=== PATIENT | male | born 1965 | race Caucasian/White ===

== ENCOUNTER 2021-09-13 08:28 | Day surgery (SDC) | payer OTHER ==
[~2021-09-13] VITALS: Ht 177.8 cm; Wt 104.0 kg
[~2021-09-13 08:28] MED LIST: ESCI10 PO; LAMO25 PO; PRAV20 PO; PRAVASTATIN SOD40 MG PO; ROSU10TA PO; TRAZ50 PO
== END 2021-09-13 11:15 | disposition home or self-care (01) ==
LOC: ORSCSDS 08:28
PROVIDERS: Internal Medicine Gastroenterology
PROC: 0D757ZZ Dilation of Esophagus, Via Natural or Artificial Opening (ICD-10-PCS; principal; 2021-09-13 09:45)
PROC: 0DJD8ZZ Inspection of Lower Intestinal Tract, Via Natural or Artificial Opening Endoscopic (ICD-10-PCS; principal; 2021-09-13 09:45)
PROC: 0DB68ZX Excision of Stomach, Via Natural or Artificial Opening Endoscopic, Diagnostic (ICD-10-PCS; principal; 2021-09-13 09:45)
PROC: 0DB58ZX Excision of Esophagus, Via Natural or Artificial Opening Endoscopic, Diagnostic (ICD-10-PCS; principal; 2021-09-13 09:45)
DX: R13.10 Dysphagia, unspecified (principal); K29.70 Gastritis, unspecified, without bleeding; K29.80 Duodenitis without bleeding; K22.2 Esophageal obstruction; Z12.11 Encounter for screening for malignant neoplasm of colon; Z86.010 Personal history of colon polyps; K57.30 Diverticulosis of large intestine without perforation or abscess without bleeding; Z87.891 Personal history of nicotine dependence; F41.9 Anxiety disorder, unspecified; F31.81 Bipolar II disorder; F32.9 Major depressive disorder, single episode, unspecified; E78.5 Hyperlipidemia, unspecified; Z79.899 Other long term (current) drug therapy
CPT/HCPCS: 88305; 88313; 88342; J2704; J7120

== ENCOUNTER 2024-08-06 11:07 | Inpatient (IN) | payer BC ==
[~2024-08-06] VITALS: Ht 175.3 cm; Wt 102.2 kg
[~2024-08-06 11:07] MED LIST changes: -ERTAPENEM1 G6 IV; -ROSUVASTATIN CA10 MG PO; -TAMSULOSIN HCL0.4 M1 PO
[2024-08-06] MEDS ORDERED: Ketorolac Tromethamine 15mg Vial IV ONE (11:40)
[2024-08-06 12:29] LABS: BASOPHILS ABSOLUTE AUTO 0.04 K/mm3 (0.00-0.23); BASOPHILS PERCENT AUTO 0 % (0-2); EOSINOPHILS PERCENT AUTO 0 % (0-6); Hematocrit 44.1 % (37.0-53.0); Hemoglobin 14.9 g/dL (13.5-17.5); IMMATURE GRAN ABSOLUTE AUTO 0.26 K/mm3 (0.00-0.10); IMMATURE GRAN PERCENT AUTO 1 % (0-1); LYMPHOCYTES ABSOLUTE AUTO 0.71 K/mm3 (0.84-5.20); LYMPHOCYTES PERCENT AUTO 4 % (21-46); MONOCYTES ABSOLUTE AUTO 0.43 K/mm3 (0.16-1.47); MONOCYTES PERCENT AUTO 2 % (4-13); Mean Corpuscular HGB 28.7 pg (26.0-34.0); Mean Corpuscular HGB Conc 33.8 g/dL (31.5-36.5); Mean Corpuscular Volume 85 fL (80-100); Mean Platelet Volume 9.9 fL (9.1-12.4); NEUTROPHILS ABSOLUTE AUTO 16.95 K/mm3 (1.96-9.15); NEUTROPHILS PERCENT AUTO 92 % (41-73); Platelet Count 224 K/mm3 (150-400); RDW Coefficient Variation 13.6 % (11.7-14.2); RDW Standard Deviation 42.3 fL (35.1-46.3); Red Blood Cell Count 5.19 M/mm3 (4.30-5.90); White Blood Cell Count 18.39 K/mm3 (4.00-11.30)
[2024-08-06 12:33] LABS: Source, Urine Clean Catch
[2024-08-06 12:37] LABS: Appearance, Urine Cloudy (Clear); Bilirubin, Urine Neg (Neg); Blood, Urine 5+ (Neg); Color, Urine Yellow (P-Yellow); Glucose Qualitative, Urine Neg (Neg); Ketones, Urine 1+ (Neg); Leukocyte Esterase, Urine 3+ (Neg); Nitrite, Urine Neg (Neg); Protein, Urine 2+ (Neg); Urobilinogen, Urine NORM (Normal)
[2024-08-06 13:16] LABS: Albumin, Blood 3.7 g/dL (3.4-5.0); Albumin/Globulin Ratio 0.9 (0.8-1.8); Bilirubin, Total 1.8 mg/dL (0.1-1.0); Creatinine, Blood 1.14 mg/dL (0.60-1.20); Globulin, Blood 3.9 g/dL (2.2-4.0); Magnesium, Blood 2.1 mg/dL (1.6-2.4); Potassium, Blood 3.5 mmol/L (3.5-5.5); Total Protein, Blood 7.6 g/dL (6.4-8.2)
[2024-08-06 13:20] LABS: Bacteria Few /hpf; Squamous Epithelial Cells Few /hpf (Few); White Blood Cells, Urine 25-50 /hpf (0-5)
[2024-08-06] MEDS ORDERED: CefTRIAXone Sodium 1,000 MG in NS 100 ML IV ONE (13:35)
[2024-08-06] MEDS ORDERED: ROSUVASTATIN CA10 MG PO ×2 (13:43)
[2024-08-06] MEDS ORDERED: ESCI10 PO ×2 (13:43)
[2024-08-06] MEDS ORDERED: TAMSULOSIN HCL0.4 M1 PO ×2 (13:43)
[2024-08-06] MEDS ORDERED: NS 1,000 ML IV SCH (13:50)
[2024-08-06] MEDS ORDERED: Acetaminophen 500 MG Tab PO ONE (15:05)
[2024-08-06] MEDS ORDERED: Ondansetron HCl 2 MG / ML 2ML Vial IV ONE (15:35)
[2024-08-06] MEDS ORDERED: Lactated Ringer's 1,000 ML IV ONE (16:00)
[2024-08-06] MEDS ORDERED: Acetaminophen 325 MG TABLET PO PRN (16:15)
[2024-08-06] MEDS ORDERED: FLU VACC TS2024-25(6MOS UP)/PF 45 MCG/0.5 ML SYRINGE IM SCH (16:20)
[2024-08-06] MEDS ORDERED: Albuterol HFA200 ACT/6.7 GM INH INH PRN (16:20)
[2024-08-06] MEDS ORDERED: Tamsulosin HCl 0.4 MG Cap PO SCH (17:00)
[2024-08-06] MEDS ORDERED: Lactated Ringer's 1,000 ML IV SCH (17:00)
[2024-08-06 19:31] VITALS: BP 108/76
[2024-08-06] MEDS ORDERED: TraZODone HCl 50 MG Tab PO SCH (21:00)
[2024-08-06] MEDS ORDERED: LamoTRIgine 25 MG Tab PO SCH (21:00)
[2024-08-06] MEDS ORDERED: Lactobacil 2-S.Thermo-Bifido 1 1 Cap PO SCH (21:00)
[2024-08-07 02:38] VITALS: BP 121/75
--- NOTE | 2024-08-07 03:49 | NUR ---
NOC SUMMARY- PT ARRIVED TO ROOM IN NO DISTRESS. PT IS AMBULATORY AND STEADY ON HIS FEET. PT IS VOIDING FREQUENTLY. PT REPORTS CONTINUED BURNING SENSATION. PT HAS BEEN EATING AND DRINKING WELL. PT HAS NO COMPLAINTS. PT RESTING QUIETLY AND TURNS SELF. CALL LIGHT IN REACH.
[2024-08-07] MEDS ORDERED: Omeprazole 20 MG CapCR PO SCH (06:00)
[2024-08-07 06:20] LABS: Albumin, Blood 2.6 g/dL (3.4-5.0); Albumin/Globulin Ratio 0.8 (0.8-1.8); Bilirubin, Direct 0.4 mg/dL (0.0-0.3); Bilirubin, Total 1.1 mg/dL (0.1-1.0); Calcium, Blood 8.3 mg/dL (8.5-10.1); Globulin, Blood 3.1 g/dL (2.2-4.0); Potassium, Blood 4.5 mmol/L (3.5-5.5); Total Protein, Blood 5.7 g/dL (6.4-8.2)
[2024-08-07 06:27] LABS: BASOPHILS ABSOLUTE AUTO 0.05 K/mm3 (0.00-0.23); BASOPHILS PERCENT AUTO 0 % (0-2); EOSINOPHILS ABSOLUTE AUTO 0.03 K/mm3 (0.00-0.68); EOSINOPHILS PERCENT AUTO 0 % (0-6); Hemoglobin 12.9 g/dL (13.5-17.5); IMMATURE GRAN ABSOLUTE AUTO 0.21 K/mm3 (0.00-0.10); IMMATURE GRAN PERCENT AUTO 1 % (0-1); LYMPHOCYTES ABSOLUTE AUTO 0.69 K/mm3 (0.84-5.20); LYMPHOCYTES PERCENT AUTO 4 % (21-46); MONOCYTES ABSOLUTE AUTO 0.91 K/mm3 (0.16-1.47); MONOCYTES PERCENT AUTO 5 % (4-13); Mean Corpuscular HGB 28.7 pg (26.0-34.0); Mean Corpuscular HGB Conc 33.9 g/dL (31.5-36.5); Mean Corpuscular Volume 85 fL (80-100); NEUTROPHILS ABSOLUTE AUTO 15.27 K/mm3 (1.96-9.15); NEUTROPHILS PERCENT AUTO 89 % (41-73); RDW Coefficient Variation 13.7 % (11.7-14.2); RDW Standard Deviation 42.6 fL (35.1-46.3); Red Blood Cell Count 4.49 M/mm3 (4.30-5.90); White Blood Cell Count 17.16 K/mm3 (4.00-11.30)
[2024-08-07 07:35] VITALS: BP 119/78
[2024-08-07] MEDS ORDERED: Ondansetron HCl 2 MG / ML 2ML Vial IV PRN (08:40)
[2024-08-07] MEDS ORDERED: NS 1,000 ML IV SCH (08:50)
[2024-08-07] MEDS ORDERED: CefTRIAXone Sodium 2,000 MG in NS 100 ML IV SCH (09:00)
[2024-08-07] MEDS ORDERED: Enoxaparin 40 MG/0.4 ML SYR SC SCH (09:00)
[2024-08-07] MEDS ORDERED: Atorvastatin 10 MG Tab PO SCH (09:00)
[2024-08-07] MEDS ORDERED: Citalopram Hydrobromide 20 MG Tab PO SCH (09:00)
[2024-08-07] MEDS ORDERED: CefTRIAXone Sodium 1,000 MG in NS 100 ML IV SCH (12:00)
--- NOTE | 2024-08-07 14:36 | NUR ---
SHIFT SUMMARY PATIENT IND IN ROOM. USING URINAL TO MONITOR OUTPUT. ROCEPHIN DOSAGE INCREASED TO 2G. LR INFUSION CHANGED TO NS @125. ENCOURAGING ORAL INTAKE WELL. PT COMPLAINT OF NAUSEA THIS AM, DR. COKER ORDERED ZOFRAN IV PRN, BUT PT DENIED NEED WHEN OFFERED TO HIM. PATIENT GOT UP TO SHOWER TODAY. NEW IV PLACED LEFT FOREARM. PRN TYLENOL GIVEN X2 FOR LOW GRADE TEMP AND MILD PAIN.
[2024-08-07 15:04] VITALS: BP 121/73
[2024-08-07] MEDS ORDERED: Banana Flakes/Tos 1 EA Powder Pack PO STA (16:12)
[2024-08-07 18:24] VITALS: BP 139/86
[2024-08-07] MEDS ORDERED: Ketorolac Tromethamine 15mg Vial IV ONE (18:30)
[2024-08-07 19:44] VITALS: BP 122/78
--- NOTE | 2024-08-07 20:15 | NUR ---
PATIENT REPORTS PAIN THAT IS A 9-10/10 THAT RADIATES FROM HIS GROIN TO HIS MID ABDOMIN TO HIS HIS BACK-PATIENT HAS TYLENOL FOR PAIN-PATIENT REPORTS NO RELIEF OF PAIN FROM TYLENOL.
[2024-08-07] MEDS ORDERED: OxyCODONE 5 mg/Acetamin 325 mg TABLET PO PRN (20:30)
[2024-08-07] MEDS ORDERED: Docusate Sodium 100 MG Cap PO SCH (21:00)
[2024-08-08 04:43] VITALS: BP 136/82
[2024-08-08 06:12] LABS: Hematocrit 36.6 % (37.0-53.0); Hemoglobin 12.3 g/dL (13.5-17.5); Mean Corpuscular HGB 28.6 pg (26.0-34.0); Mean Corpuscular HGB Conc 33.6 g/dL (31.5-36.5); Mean Corpuscular Volume 85 fL (80-100); Mean Platelet Volume 10.3 fL (9.1-12.4); Platelet Count 161 K/mm3 (150-400); RDW Coefficient Variation 13.8 % (11.7-14.2); RDW Standard Deviation 42.7 fL (35.1-46.3); White Blood Cell Count 11.19 K/mm3 (4.00-11.30)
[2024-08-08 06:34] LABS: Bun/Creatinine Ratio 13.4 (12.0-20.0); Calcium, Blood 8.2 mg/dL (8.5-10.1); Creatinine, Blood 0.9 mg/dL (0.60-1.20); Potassium, Blood 3.6 mmol/L (3.5-5.5)
--- NOTE | 2024-08-08 06:38 | NUR ---
SHIFT SUMMARY. PATIENT IS A&OX4. PATIENTS AFEBRILE THIS SHIFT. PATIENT REPORTS PAIN THAT RADIATES FROM GROIN TO MID ABDOMIN TO BACK. HOSPITALIST SHEA ORDERED FOR PERCOCET-SEE ORDERS. PATIENT INDEPENDENT IN ROOM. PATIENT CALLS APPROPRIATELY AND IS ABLE TO MAKE HIS NEEDS KNOWN. BED IS LOCKED IN THE LOWEST POSITION WITH CALL LIGHT IN REACH. CARE IS ONGOING.
[2024-08-08 07:42] VITALS: BP 149/87
[2024-08-08] MEDS ORDERED: Meropenem 1,000 MG in NS 100 ML IV SCH (08:26)
[2024-08-08] MEDS ORDERED: Thiamine HCl 100 MG Tab PO SCH (09:00)
[2024-08-08] MEDS ORDERED: Multivitamins 1 Tab PO SCH (09:00)
--- NOTE | 2024-08-08 09:00 | NUR ---
pt laying in bed, spouce at bedside, a/ox4, pleasant and coopertive with care, follows commands well, reports a lot of pain in lower abd, lungs are clear t/o, no cough noted or reported, on r/a, hrr, no edema noted, ppp+2, cap refill <3 sec, vs stable, afebrile, piv to lfa and rac, sites are clear and patent, btx4, abd flat soft nontender, voids without diff, skin c/w/d, maew, kirill, call light in reach.
[2024-08-08 16:04] VITALS: BP 123/77
--- NOTE | 2024-08-08 18:00 | NUR ---
pt moaning with pain, medicated him with roxinol, he is some calmer, he states he needs to have a bm, and his bladder feels full, called Dr. Shook reported lactic acid increased to 4.8, no new orders, did a bladder scan showed 800, but could be acites, DrJennifer ok to straight cath, if large amount out will leave roche. spoke with pallative care nurse to make sure they are aware of pt. call light in reach.
--- NOTE | 2024-08-08 18:03 | NUR ---
pt resting in bed watching tv with spouce, states he's feeling better and appetite is coming back, she brought him a pizza, doing ok at this time, call light in reach.
[2024-08-08 19:13] VITALS: BP 148/91
[2024-08-08] MEDS ORDERED: NS 250 ML IV PRN (23:00)
[2024-08-09 03:47] VITALS: BP 158/92
--- NOTE | 2024-08-09 05:31 | NUR ---
SHIFT SUMMARY NOC PT A/O X 4. PLEASANT AND COOPERATIVE WITH CARE. VSS. NO ACUTE CHANGES TO REPORT. PT RECEIVING IV ABX FOR UTI. PT WILL NEED POWERGLIDE OR PICC PLACED IS RN AND CAN ADMINISTER IV ABX AT HOME. PT AWAITING REFERRAL FOR HOME HEALTH TO DISCHARGE HOME SAFELY. PT FLANK PAIN BEING MANAGED PER EMAR. PT CURRENTLY RESTING WITH BED IN LOWEST POSITION, AND CALL LIGHT WITHIN REACH.
[2024-08-09 07:09] VITALS: BP 138/94
[2024-08-09 15:40] VITALS: BP 151/93
[2024-08-09 19:14] VITALS: BP 124/76
--- NOTE | 2024-08-09 19:30 | NUR ---
SHIFT SUMMARY MR YANG HAS BEEN AMBULATORY, STEADY GAIT, TOOK A SHOWER TODAY. AT BEDSIDE, SHE IS AN RN AND THEY VERBALISED UNDERSTANDING OF PLAN OF CARE. HE HAS AN APPOINTMENT SET UP FOR OUT PT ABX THERAPY MONDAY AND MONDAY AT 1:30PM WITH A PLAN FOR LINE PLACEMENT ON MONDAY. PAIN CONTROLED WITH PERCOCET, STILL C/O DYSURIA AND FLANK PAIN, PAIN LESS INTENSE THAN PREVIOUSLY. BED LOW, CALL LIGHT IN REACH.
[2024-08-09] MEDS ORDERED: Morphine Sulfate 4 MG/1 ML Injection IV PRN (22:45)
--- NOTE | 2024-08-10 03:19 | NUR ---
SHIFT SUMMARY PT AOX4, COOPERATIVE, ABLE TO MAKE NEEDS KNOWN. TOLERATING MEDS APPROPRIATELY, SAMANTHA BENSON CONTACTED PROVIDER ON NEW PAIN MED ORDER SINCE PREVIOUS WAS NOT EFFECTIVE ACCORDING TO PT. MORPHINE WAS EFFECTIVE. PT HAS HAD NO COMPLAINTS DURING SHIFT, TOLERATING MEDS WELL. BED IN LOWEST POSITION, CALL LIGHT WITIN REACH.
[2024-08-10 05:33] VITALS: BP 150/79
[2024-08-10 07:03] VITALS: BP 150/91
[2024-08-10] MEDS ORDERED: VISBIOME 112.51 EACH PO (13:21)
[2024-08-10] MEDS ORDERED: ERTAPENEM1 G6 IV ×2 (13:23)
--- NOTE | 2024-08-10 16:12 | NUR ---
DISCHARGE NOTE PT DISCHARGED TO HOME, PICKED UP BY HIS . IV REMOVED, POWERGLIDE IN PLACE FOR OUTPATIENT INFUSIONS THROUGH THE [facility]. NO ACUTE CHANGES PRIOR TO DC. PT RECEIVED TWO IV MEREM BEFORE DC. DISCHARGE EDUCATION AND INFORMATION PROVIDED, REVIEWED WITH THE PT.
== END 2024-08-10 16:30 | disposition home or self-care (01) | DRG 872 ==
LOC: ER 11:07 → MEDS 16:12 → ERHOLD 16:12 → MEDS 19:28 → ENPENDDIS 08-10 11:42 → MEDS 08-10 16:30
PROVIDERS: Internal Medicine; Physician Assistant; ADMIT Family Medicine
DX: A41.51 Sepsis due to Escherichia coli [E. coli] (principal); N12 Tubulo-interstitial nephritis, not specified as acute or chronic; E87.1 Hypo-osmolality and hyponatremia; Z16.12 Extended spectrum beta lactamase (ESBL) resistance; R65.20 Severe sepsis without septic shock; E78.5 Hyperlipidemia, unspecified; J45.909 Unspecified asthma, uncomplicated; F39 Unspecified mood [affective] disorder; E80.6 Other disorders of bilirubin metabolism; F51.04 Psychophysiologic insomnia; K21.9 Gastro-esophageal reflux disease without esophagitis; R78.89 Finding of other specified substances, not normally found in blood; N40.0 Benign prostatic hyperplasia without lower urinary tract symptoms; R19.7 Diarrhea, unspecified; R30.0 Dysuria; R10.9 Unspecified abdominal pain; R11.0 Nausea; Z87.19 Personal history of other diseases of the digestive system; Z87.01 Personal history of pneumonia (recurrent); Z79.2 Long term (current) use of antibiotics; Z79.899 Other long term (current) drug therapy; Z79.891 Long term (current) use of opiate analgesic; Z79.51 Long term (current) use of inhaled steroids; Z87.891 Personal history of nicotine dependence
CPT/HCPCS: 36415; 76770; 80048; 80053; 81001; 82248; 83605; 83735; 85025; 85027; 87040; 87077; 87186; 94760; 96365; 96375; 99285-25; A9270; C1751; J0696; J1650; J1885; J2185; J2270; J2405; J7030; J7050; J7120

== ENCOUNTER → 2024-08-06 | Outpatient (CLI) | payer BC ==
[~2024-08-06] MED LIST changes: +ALBU90OI INH; +AMOCLA875 PO; +APHEN325 M1 PO; +AZIT500 PO; +DOCU100 PO; +EC-NAPROSYN500 MG PO; +ERTAPENEM1 G6 IV; +LAMO100 PO; -LAMO25 PO; +Prilosec Otc20 MG PO; +ROSUVASTATIN CA10 MG PO; +TAMSULOSIN HCL0.4 M1 PO; +VISBIOME 112.51 EACH PO
[2024-08-06 09:00] LABS: BASOPHILS ABSOLUTE AUTO 0.05 K/mm3 (0.00-0.23); BASOPHILS PERCENT AUTO 0 % (0-2); EOSINOPHILS PERCENT AUTO 0 % (0-6); IMMATURE GRAN ABSOLUTE AUTO 0.43 K/mm3 (0.00-0.10); IMMATURE GRAN PERCENT AUTO 2 % (0-1); LYMPHOCYTES ABSOLUTE AUTO 0.64 K/mm3 (0.84-5.20); LYMPHOCYTES PERCENT AUTO 3 % (21-46); MONOCYTES ABSOLUTE AUTO 1.55 K/mm3 (0.16-1.47); MONOCYTES PERCENT AUTO 7 % (4-13); Mean Corpuscular HGB 28.7 pg (26.0-34.0); Mean Corpuscular HGB Conc 34.1 g/dL (31.5-36.5); Mean Corpuscular Volume 84 fL (80-100); Mean Platelet Volume 10.1 fL (9.1-12.4); NEUTROPHILS ABSOLUTE AUTO 20.86 K/mm3 (1.96-9.15); NEUTROPHILS PERCENT AUTO 89 % (41-73); Platelet Count 238 K/mm3 (150-400); RDW Coefficient Variation 13.5 % (11.7-14.2); Red Blood Cell Count 5.23 M/mm3 (4.30-5.90); White Blood Cell Count 23.53 K/mm3 (4.00-11.30)
[2024-08-06 09:14] LABS: Albumin/Globulin Ratio 1.1 (0.8-1.8); Bilirubin, Total 1.6 mg/dL (0.1-1.0); Bun/Creatinine Ratio 12.4 (12.0-20.0); Creatinine, Blood 1.05 mg/dL (0.60-1.20); Globulin, Blood 3.6 g/dL (2.2-4.0); Potassium, Blood 3.7 mmol/L (3.5-5.5); Total Protein, Blood 7.6 g/dL (6.4-8.2)
== END | disposition home or self-care (01) ==
LOC: LAB 08:00 → LAB SHORT 08:00
PROVIDERS: Physician Assistant
DX: R30.0 Dysuria (principal); R10.9 Unspecified abdominal pain; R11.0 Nausea
CPT/HCPCS: 80053; 85025; 87077; 87086; 87186

== ENCOUNTER 2024-08-11 02:38 | Day surgery (SDC) | payer BC ==
[~2024-08-11 02:38] MED LIST changes: +ERTAPENEM1 G6 IV; +ROSUVASTATIN CA10 MG PO; +TAMSULOSIN HCL0.4 M1 PO
[2024-08-11] MEDS ORDERED: Ertapenem Sodium 1,000 MG in NS 50 ML IV SCH (07:30)
== END 2024-08-11 14:02 | disposition home or self-care (01) ==
LOC: ATC 02:38
DX: R78.81 Bacteremia (principal); B96.29 Other Escherichia coli [E. coli] as the cause of diseases classified elsewhere; N39.0 Urinary tract infection, site not specified; E78.5 Hyperlipidemia, unspecified; K21.9 Gastro-esophageal reflux disease without esophagitis; F39 Unspecified mood [affective] disorder; N40.0 Benign prostatic hyperplasia without lower urinary tract symptoms; J45.909 Unspecified asthma, uncomplicated; Z16.12 Extended spectrum beta lactamase (ESBL) resistance; Z79.899 Other long term (current) drug therapy; Z87.891 Personal history of nicotine dependence
CPT/HCPCS: 96365; J1335

== ENCOUNTER 2024-08-12 03:03 | Day surgery (SDC) | payer BC ==
[~2024-08-12 03:03] MED LIST changes: +Ertapenem Sodium 1,000 MG in NS 50 ML IV SCH
[2024-08-12 13:35] VITALS: BP 117/82
== END 2024-08-12 13:59 | disposition home or self-care (01) ==
LOC: ATC 03:03
DX: R78.81 Bacteremia (principal); B96.29 Other Escherichia coli [E. coli] as the cause of diseases classified elsewhere; N39.0 Urinary tract infection, site not specified; E78.5 Hyperlipidemia, unspecified; K21.9 Gastro-esophageal reflux disease without esophagitis; J45.909 Unspecified asthma, uncomplicated; Z79.899 Other long term (current) drug therapy; Z16.12 Extended spectrum beta lactamase (ESBL) resistance
CPT/HCPCS: 96365; J1335

== ENCOUNTER 2024-08-13 04:57 | Day surgery (SDC) | payer BC ==
[~2024-08-13 04:57] MED LIST changes: -Ertapenem Sodium 1,000 MG in NS 50 ML IV SCH
[2024-08-13] MEDS ORDERED: Ertapenem Sodium 1,000 MG in NS 50 ML IV SCH (06:00)
[2024-08-13 13:35] VITALS: BP 136/92
== END 2024-08-13 13:53 | disposition home or self-care (01) ==
LOC: ATC 04:57
DX: R78.81 Bacteremia (principal); B96.29 Other Escherichia coli [E. coli] as the cause of diseases classified elsewhere; N39.0 Urinary tract infection, site not specified; K21.9 Gastro-esophageal reflux disease without esophagitis; F39 Unspecified mood [affective] disorder; N40.0 Benign prostatic hyperplasia without lower urinary tract symptoms; J45.909 Unspecified asthma, uncomplicated; Z16.12 Extended spectrum beta lactamase (ESBL) resistance; Z79.899 Other long term (current) drug therapy; Z87.891 Personal history of nicotine dependence
CPT/HCPCS: 96374; J1335

== ENCOUNTER 2024-08-14 04:54 | Day surgery (SDC) | payer BC ==
[~2024-08-14 04:54] MED LIST changes: +Ertapenem Sodium 1,000 MG in NS 50 ML IV SCH
[2024-08-14 11:48] VITALS: BP 124/85
== END 2024-08-14 12:07 | disposition home or self-care (01) ==
LOC: ATC 04:54
DX: R78.81 Bacteremia (principal); B96.20 Unspecified Escherichia coli [E. coli] as the cause of diseases classified elsewhere; Z16.12 Extended spectrum beta lactamase (ESBL) resistance; N39.0 Urinary tract infection, site not specified; N40.0 Benign prostatic hyperplasia without lower urinary tract symptoms; K21.9 Gastro-esophageal reflux disease without esophagitis; E78.5 Hyperlipidemia, unspecified; Z87.891 Personal history of nicotine dependence; F51.04 Psychophysiologic insomnia; J45.909 Unspecified asthma, uncomplicated; Z79.899 Other long term (current) drug therapy
CPT/HCPCS: 96365; J1335

== ENCOUNTER 2024-08-15 05:57 | Day surgery (SDC) | payer BC ==
[2024-08-15 11:49] VITALS: BP 127/81
== END 2024-08-15 11:59 | disposition home or self-care (01) ==
LOC: ATC 05:57
DX: N39.0 Urinary tract infection, site not specified (principal); J45.909 Unspecified asthma, uncomplicated; G47.00 Insomnia, unspecified; E78.5 Hyperlipidemia, unspecified; K21.9 Gastro-esophageal reflux disease without esophagitis; N40.0 Benign prostatic hyperplasia without lower urinary tract symptoms; Z16.12 Extended spectrum beta lactamase (ESBL) resistance; Z87.891 Personal history of nicotine dependence; Z79.899 Other long term (current) drug therapy
CPT/HCPCS: 96365; J1335

== ENCOUNTER 2024-08-16 06:09 | Day surgery (SDC) | payer BC ==
[2024-08-16 11:27] VITALS: BP 111/87
== END 2024-08-16 12:00 | disposition home or self-care (01) ==
LOC: ATC 06:09
DX: A41.51 Sepsis due to Escherichia coli [E. coli] (principal); N39.0 Urinary tract infection, site not specified; R65.20 Severe sepsis without septic shock; Z16.12 Extended spectrum beta lactamase (ESBL) resistance; K21.9 Gastro-esophageal reflux disease without esophagitis; E78.5 Hyperlipidemia, unspecified; Z87.891 Personal history of nicotine dependence; Z79.899 Other long term (current) drug therapy
CPT/HCPCS: 96365; J1335

== ENCOUNTER 2024-08-17 01:18 | Day surgery (SDC) | payer BC ==
[2024-08-17 11:38] VITALS: BP 126/91
== END 2024-08-17 12:00 | disposition home or self-care (01) ==
LOC: ATC 01:18
DX: A41.51 Sepsis due to Escherichia coli [E. coli] (principal); N39.0 Urinary tract infection, site not specified; R65.20 Severe sepsis without septic shock; Z16.12 Extended spectrum beta lactamase (ESBL) resistance; E78.5 Hyperlipidemia, unspecified; K21.9 Gastro-esophageal reflux disease without esophagitis; Z87.891 Personal history of nicotine dependence; Z79.899 Other long term (current) drug therapy
CPT/HCPCS: 96365; J1335

== ENCOUNTER 2024-08-18 11:25 | Day surgery (SDC) | payer BC ==
[2024-08-18 11:34] VITALS: BP 118/91
== END 2024-08-18 11:53 | disposition home or self-care (01) ==
LOC: ATC 11:25
DX: R78.81 Bacteremia (principal); B96.20 Unspecified Escherichia coli [E. coli] as the cause of diseases classified elsewhere; N39.0 Urinary tract infection, site not specified; E78.5 Hyperlipidemia, unspecified; K21.9 Gastro-esophageal reflux disease without esophagitis; F39 Unspecified mood [affective] disorder; J45.909 Unspecified asthma, uncomplicated; N40.0 Benign prostatic hyperplasia without lower urinary tract symptoms; Z16.12 Extended spectrum beta lactamase (ESBL) resistance; Z87.891 Personal history of nicotine dependence; Z79.899 Other long term (current) drug therapy
CPT/HCPCS: 96365; J1335

== ENCOUNTER 2024-08-19 03:06 | Day surgery (SDC) | payer BC ==
[2024-08-19 11:27] VITALS: BP 131/91
== END 2024-08-19 11:44 | disposition home or self-care (01) ==
LOC: ATC 03:06
DX: A41.51 Sepsis due to Escherichia coli [E. coli] (principal); Z16.12 Extended spectrum beta lactamase (ESBL) resistance; N39.0 Urinary tract infection, site not specified; R65.20 Severe sepsis without septic shock; E80.6 Other disorders of bilirubin metabolism; E78.5 Hyperlipidemia, unspecified; K21.9 Gastro-esophageal reflux disease without esophagitis; J45.909 Unspecified asthma, uncomplicated; Z87.891 Personal history of nicotine dependence; Z79.899 Other long term (current) drug therapy
CPT/HCPCS: 96365; J1335

== ENCOUNTER 2024-08-20 03:51 | Day surgery (SDC) | payer BC ==
[2024-08-20 11:43] VITALS: BP 122/90
== END 2024-08-20 11:57 | disposition home or self-care (01) ==
LOC: ATC 03:51
DX: R78.81 Bacteremia (principal); B96.20 Unspecified Escherichia coli [E. coli] as the cause of diseases classified elsewhere; N39.0 Urinary tract infection, site not specified; E78.5 Hyperlipidemia, unspecified; K21.9 Gastro-esophageal reflux disease without esophagitis; F39 Unspecified mood [affective] disorder; J45.909 Unspecified asthma, uncomplicated; Z16.12 Extended spectrum beta lactamase (ESBL) resistance; Z79.899 Other long term (current) drug therapy
CPT/HCPCS: 96365; J1335

== ENCOUNTER 2024-08-21 11:24 | Day surgery (SDC) | payer BC ==
[2024-08-21 11:35] VITALS: BP 120/93
== END 2024-08-21 11:55 | disposition home or self-care (01) ==
LOC: ATC 11:24
DX: R78.81 Bacteremia (principal); B96.20 Unspecified Escherichia coli [E. coli] as the cause of diseases classified elsewhere; N39.0 Urinary tract infection, site not specified; Z16.12 Extended spectrum beta lactamase (ESBL) resistance; E78.5 Hyperlipidemia, unspecified; K21.9 Gastro-esophageal reflux disease without esophagitis; F39 Unspecified mood [affective] disorder; J45.909 Unspecified asthma, uncomplicated; Z87.891 Personal history of nicotine dependence
CPT/HCPCS: 96365; J1335

== ENCOUNTER 2024-08-22 00:09 | Day surgery (SDC) | payer BC ==
[~2024-08-22 00:09] MED LIST changes: -Ertapenem Sodium 1,000 MG in NS 50 ML IV SCH
[2024-08-22] MEDS ORDERED: Ertapenem Sodium 1,000 MG in NS 50 ML IV SCH (01:00)
[2024-08-22 11:24] VITALS: BP 135/94
== END 2024-08-22 11:52 | disposition home or self-care (01) ==
LOC: ATC 00:09
DX: R78.81 Bacteremia (principal); B96.20 Unspecified Escherichia coli [E. coli] as the cause of diseases classified elsewhere; N39.0 Urinary tract infection, site not specified; E78.5 Hyperlipidemia, unspecified; K21.9 Gastro-esophageal reflux disease without esophagitis; E87.1 Hypo-osmolality and hyponatremia; F39 Unspecified mood [affective] disorder; J45.909 Unspecified asthma, uncomplicated; Z16.12 Extended spectrum beta lactamase (ESBL) resistance
CPT/HCPCS: 96365; J1335

== ENCOUNTER 2024-08-23 06:49 | Day surgery (SDC) | payer BC ==
[~2024-08-23 06:49] MED LIST changes: +Ertapenem Sodium 1,000 MG in NS 50 ML IV SCH
[2024-08-23 11:41] VITALS: BP 112/98
== END 2024-08-23 11:59 | disposition home or self-care (01) ==
LOC: ATC 06:49
DX: R78.81 Bacteremia (principal); N39.0 Urinary tract infection, site not specified; B96.20 Unspecified Escherichia coli [E. coli] as the cause of diseases classified elsewhere; Z16.12 Extended spectrum beta lactamase (ESBL) resistance; E78.5 Hyperlipidemia, unspecified; K21.9 Gastro-esophageal reflux disease without esophagitis; N40.0 Benign prostatic hyperplasia without lower urinary tract symptoms; F39 Unspecified mood [affective] disorder; G47.00 Insomnia, unspecified; J45.909 Unspecified asthma, uncomplicated; Z87.891 Personal history of nicotine dependence; Z79.899 Other long term (current) drug therapy
CPT/HCPCS: 96365; J1335

== ENCOUNTER 2024-08-24 11:27 | Day surgery (SDC) | payer BC ==
[2024-08-24 11:34] VITALS: BP 121/91
== END 2024-08-24 11:54 | disposition home or self-care (01) ==
LOC: ATC 11:27
DX: A41.51 Sepsis due to Escherichia coli [E. coli] (principal); N39.0 Urinary tract infection, site not specified; R65.20 Severe sepsis without septic shock; Z16.12 Extended spectrum beta lactamase (ESBL) resistance; E87.1 Hypo-osmolality and hyponatremia; E78.5 Hyperlipidemia, unspecified; F39 Unspecified mood [affective] disorder; K21.9 Gastro-esophageal reflux disease without esophagitis; F51.04 Psychophysiologic insomnia; J45.909 Unspecified asthma, uncomplicated; Z87.891 Personal history of nicotine dependence; Z79.899 Other long term (current) drug therapy
CPT/HCPCS: 96365; J1335

== ENCOUNTER 2024-08-25 11:27 | Day surgery (SDC) | payer BC ==
[2024-08-25 11:38] VITALS: BP 122/91
== END 2024-08-25 12:00 | disposition home or self-care (01) ==
LOC: ATC 11:27
DX: A41.51 Sepsis due to Escherichia coli [E. coli] (principal); Z16.12 Extended spectrum beta lactamase (ESBL) resistance; N39.0 Urinary tract infection, site not specified; R65.20 Severe sepsis without septic shock; K21.9 Gastro-esophageal reflux disease without esophagitis; J45.909 Unspecified asthma, uncomplicated; N40.0 Benign prostatic hyperplasia without lower urinary tract symptoms; E78.5 Hyperlipidemia, unspecified; Z87.891 Personal history of nicotine dependence; Z79.899 Other long term (current) drug therapy
CPT/HCPCS: 96365; J1335

== ENCOUNTER → 2025-03-21 | Outpatient (CLI) | payer BC ==
[~2025-03-21] MED LIST changes: -Ertapenem Sodium 1,000 MG in NS 50 ML IV SCH
[2025-03-21 10:03] LABS: BASOPHILS ABSOLUTE AUTO 0.05 K/mm3 (0.00-0.23); BASOPHILS PERCENT AUTO 1 % (0-2); EOSINOPHILS ABSOLUTE AUTO 0.10 K/mm3 (0.00-0.68); EOSINOPHILS PERCENT AUTO 2 % (0-6); Hematocrit 53.8 % (37.0-53.0); Hemoglobin 18.2 g/dL (13.5-17.5); IMMATURE GRAN ABSOLUTE AUTO 0.03 K/mm3 (0.00-0.10); IMMATURE GRAN PERCENT AUTO 1 % (0-1); LYMPHOCYTES ABSOLUTE AUTO 0.93 K/mm3 (0.84-5.20); LYMPHOCYTES PERCENT AUTO 18 % (21-46); MONOCYTES ABSOLUTE AUTO 0.96 K/mm3 (0.16-1.47); MONOCYTES PERCENT AUTO 19 % (4-13); Mean Corpuscular HGB Conc 33.8 g/dL (31.5-36.5); Mean Corpuscular Volume 82 fL (80-100); NEUTROPHILS ABSOLUTE AUTO 3.06 K/mm3 (1.96-9.15); NEUTROPHILS PERCENT AUTO 60 % (41-73); NRBC ABSOLUTE 0.00 K/mm3 (0.00-0.02); NRBC Auto 0.0 /100 WBC (0.0-0.2); Platelet Count 291 K/mm3 (150-400); RDW Coefficient Variation 13.3 % (11.7-14.2); RDW Standard Deviation 39.7 fL (35.1-46.3)
[2025-03-21 10:16] LABS: Alanine Aminotransfer (ALT/SGP 30.0 U/L (12-78); Albumin, Blood 4.0 g/dL (3.4-5.0); Albumin/Globulin Ratio 0.8 (0.8-1.8); Anion Gap 11.0 mmol/L (3-11); Aspartate Aminotrans (AST/SGOT 16.0 U/L (12-37); Bilirubin, Total 0.6 mg/dL (0.1-1.0); Blood Urea Nitrogen 17.0 mg/dL (8-24); CO2, Blood 24.0 mmol/L (21-32); Calcium, Blood 9.3 mg/dL (8.5-10.1); Chloride, Blood 102.0 mmol/L (98-108); Creatinine, Blood 1.63 mg/dL (0.60-1.20); Globulin, Blood 4.9 g/dL (2.2-4.0); Glucose, Blood 124.0 mg/dL (70-99); Potassium, Blood 3.5 mmol/L (3.5-5.5); Sodium, Blood 133.0 mmol/L (136-145); Total Protein, Blood 8.9 g/dL (6.4-8.2)
[2025-03-21 15:22] LABS: Campylobacter Sp Detected (NOT DETECT); E. Coli O157 Not Detected (NOT DETECT); Enteroaggregative E. coli-EAEC Not Detected (NOT DETECT); Enteropathogenic E. coli-EPEC Not Detected (NOT DETECT); Enterotoxigenic E. coli-ETEC Not Detected (NOT DETECT); Salmonella Sp Not Detected (NOT DETECT); Shiga Toxin-prod E. coli-STEC Not Detected (NOT DETECT); Shigella/Enteroin E. coli-EIEC Not Detected (NOT DETECT); Vibrio Sp Not Detected (NOT DETECT)
== END ==
LOC: LAB SHORT 09:54 → LAB 09:54
PROVIDERS: Nurse Practitioner Acute Care
DX: R19.7 Diarrhea, unspecified (principal)
CPT/HCPCS: 80053; 85025; 87324; 87507